=== PATIENT | female | born 1965 | race Caucasian/White ===

== ENCOUNTER 2018-12-21 06:17 | Day surgery (SDC) | payer OTHER ==
[~2018-12-21] VITALS: Ht 172.7 cm; Wt 65.7 kg
[~2018-12-21 06:17] MED LIST: ALPR.25 PO; CEPH500 PO; CIME400 PO; CLIN300 PO; CRUTCH2 USE; GABA600; LORA10ER PO; MORPHABOND ER15 MG; NAPR500 PO; Norco 10-325 T1 EACH; OMEPRAZOLE MAGN20 MG PO; OXYACE5T PO; PARO10; PARO20 PO; RXOXYACE PO; SULTRIDS; SULTRIDS PO; VIVARIN
--- NOTE | 2018-12-21 07:31 | NUR ---
12/21/18 0731 Arpita Ferro HCG ORDERED PREOP. PT WITH TUBAL LIGATION AND ABLATION AND HAS BEEN IN MENOPAUSE FOR YEARS PER PT. NO URINE HCG NEEDED PREOP PER MD BILLINGS
== END 2018-12-21 10:30 | disposition home or self-care (01) ==
LOC: ORSCSDS 06:17
PROVIDERS: Orthopaedic Surgery
PROC: 0LQ80ZZ Repair Left Hand Tendon, Open Approach (ICD-10-PCS; principal; 2018-12-21 07:30)
DX: S66.121A Laceration of flexor muscle, fascia and tendon of left index finger at wrist and hand level, initial encounter (principal); F17.210 Nicotine dependence, cigarettes, uncomplicated; Z79.899 Other long term (current) drug therapy
CPT/HCPCS: J0690; J2250; J2704; J3010

== ENCOUNTER → 2019-01-06 | Outpatient (CLI) | payer OTHER | END | disposition home or self-care (01) | LOC: LAB EV 13:55 → LAB SHORT 13:55 | DX: N39.0 Urinary tract infection, site not specified (principal) | CPT/HCPCS: 87077; 87086; 87186 ==

== ENCOUNTER 2021-09-06 00:16 | Emergency (ER) | payer OTHER ==
[~2021-09-06] VITALS: Ht 172.7 cm; Wt 61.2 kg
== END 2021-09-06 05:48 | disposition home or self-care (01) ==
LOC: ER 00:16
DX: S61.211A Laceration without foreign body of left index finger without damage to nail, initial encounter (principal); S61.217A Laceration without foreign body of left little finger without damage to nail, initial encounter; S60.413A Abrasion of left middle finger, initial encounter; W45.8XXA Other foreign body or object entering through skin, initial encounter; R20.9 Unspecified disturbances of skin sensation; Z88.2 Allergy status to sulfonamides; Z88.8 Allergy status to other drugs, medicaments and biological substances; Z79.899 Other long term (current) drug therapy; F17.200 Nicotine dependence, unspecified, uncomplicated
CPT/HCPCS: 12002; 99282-25